=== PATIENT | male | born 1970 | race American Indian/Alaskan Native ===

== ENCOUNTER 2020-07-11 02:33 | Emergency (ER) | payer OTHER ==
[2020-07-11] MEDS ORDERED: ASPIRIN 325 MG TAB PO ONE (02:39)
[2020-07-11 02:56] VITALS: BP 148/92
== END 2020-07-11 02:40 | disposition left against medical advice (07) ==
LOC: ED 02:33
DX: R07.89 Other chest pain (principal); Z53.21 Procedure and treatment not carried out due to patient leaving prior to being seen by health care provider